=== PATIENT | female | born 1955 | race Caucasian/White ===

== ENCOUNTER 2017-11-16 07:23 | Day surgery (SDC) | payer BC ==
[2017-11-16] MEDS ORDERED: Lactated Ringers 1,000 ML IV SCH (07:30)
[2017-11-16] MEDS ORDERED: Propofol 200 MG/20 ML SDV IV ONE (08:53)
--- NOTE | 2017-11-16 08:54 | PCM.HPR ---
H & P Addendum review - H & P Addendum Review Date of Original H & P: 11/12/17 Date Reviewed: 11/16/17 Time Reviewed: 08:54 Patient was Examined: No Changes
--- NOTE | 2017-11-16 09:47 | PCM.OPNOTE ---
- General Post-Op/Procedure Note Date of Surgery/Procedure: 11/16/17 Operative Procedure(s): EGD with Bx's. Colonoscopy with polypectomy Findings: Gastritis Pre Op Diagnosis: Dysphasia. Adb Pain. FH colon Ca Post-Op Diagnosis: Same Anesthesia Technique: MAC Primary Surgeon: Juan Amanda Pathology: Stomach and Esoph Bx Colon Polyp EBL in mLs: 0 Complications: None Condition: Good
--- NOTE | 2017-11-17 07:29 | OR ---
DATE OF OPERATION: 11/16/2017 SURGEON: Juan Amanda MD PREOPERATIVE DIAGNOSES: 1. Dysphagia. 2. History of gastroesophageal reflux disease. 3. Upper abdominal pain. 4. Family history of colon cancer. POSTOPERATIVE DIAGNOSES: 1. Gastritis. 2. Sigmoid colon polyp. 3. Sigmoid diverticulosis. PROCEDURE: 1. EGD with biopsies. 2. Colonoscopy with polypectomy. ANESTHESIA: IV sedation. PROCEDURE: Patient was brought to the procedure room, where IV sedation was administered. Oral bite block was placed and the upper endoscope was advanced into the esophagus under direct vision without difficulty. Vocal cords were viewed and were normal. The scope was advanced to the third portion of the duodenum. The duodenum and pylorus were normal. Antrum was normal. In the upper body anterior wall, an area of approximately 1 x 2 cm with some inflammation was present. I did biopsy this area. The lower esophageal sphincter is fairly loose, and I can visualize into the distal esophagus upon retroflexion. The squamocolumnar junction appears normal and distal esophageal mucosa appears normal. I did take biopsies from the antrum and body of the stomach where the inflammation was present. Because of her symptoms, I also biopsied the distal esophagus. Air was removed from the stomach and the scope withdrawn. The patient tolerated this portion of the procedure well. Next, colonoscopy was performed. After digital rectal exam was performed, which was normal, colonoscope was inserted and advanced to the level of the cecum with difficulty getting through a tortuous sigmoid colon. This required pressure on the abdomen and changing to the supine position. Cecal position was confirmed by identifying the appendiceal lumen and ileocecal valve. Prep was good with some areas of thick stool remaining that was irrigated and suctioned. Upon withdrawing the scope, the ascending, transverse, and descending colon were normal in appearance. The sigmoid colon had multiple diverticula present. There was also a 5-mm sessile polyp located 20 cm from the anal verge that was removed with the hot biopsy forceps and sent for pathology review. Rectum was normal and retroflexion was normal. Air was removed and the scope withdrawn. The patient tolerated the procedure well and returned to recovery in stable condition. I will contact the patient with the pathology report when it returns. If the polyp is adenomatous, she should undergo repeat colonoscopy again in 3 years. If the polyp is hyperplastic, she can wait 5 years until her next colon screening. /[id number] TYRON/CHRISTIANNE CC: DENISE TRENT CNP
== END 2017-11-16 10:38 | disposition home or self-care (01) ==
LOC: FB.SDS 07:23
PROVIDERS: ATTEND Surgery
DX: K29.50 Unspecified chronic gastritis without bleeding (principal); K20.9 Esophagitis, unspecified; K63.5 Polyp of colon; K57.30 Diverticulosis of large intestine without perforation or abscess without bleeding; Z88.6 Allergy status to analgesic agent; Z88.8 Allergy status to other drugs, medicaments and biological substances; Z80.0 Family history of malignant neoplasm of digestive organs
CPT/HCPCS: 43239; 45384; 82962; 88305; 88342; J2704; J7120